=== PATIENT | female | born 1935 | race Caucasian/White ===

== ENCOUNTER → 2017-09-07 | Day surgery (SDC) | payer MEDICARE, OTHER ==
[2017-09-06 11:06] VITALS: BMI 32.1
[~2017-09-07] MED LIST: FLU VACC TS2017-18 (>65YR) 0.5 ML SYRINGE IM ONE
--- NOTE | 2017-09-07 15:18 | ULT ---
FINE NEEDLE ASPIRATION WITH IMAGING GUIDANCE: Date: 09/07/17 HISTORY: Thyroid nodule. COMPARISON: Outside facility ultrasound dated 08/18/17. TECHNIQUE/FINDINGS: Patient was brought to the ultrasound suite. All questions were answered. The thyroid nodule in the left lobe was revisualized and confirmed by comparting to the prior examination. Timeout was perform ed. Informed consent was already obtained. Using ultrasound guidance, a total of four 25 gauge cores were obtained through the left thyroid nodule. The patient tolerated the procedure well. No complic ations. IMPRESSION: Technically successful left thyroid mass fine needle aspiration. POS: [facility]
== END ==
LOC: ULT 10:23
PROVIDERS: ATTEND Otolaryngology Plastic Surgery within the Head & Neck
PROC: 0G9G3ZX Drainage of Left Thyroid Gland Lobe, Percutaneous Approach, Diagnostic (ICD-10-PCS; principal; 2017-09-07)
DX: E04.1 Nontoxic single thyroid nodule (principal); Z91.040 Latex allergy status; Z88.5 Allergy status to narcotic agent
CPT/HCPCS: 10022; 76942; 88173; 88305

== ENCOUNTER 2017-10-20 15:11 | Inpatient (IN) | payer MEDICARE, OTHER ==
[2017-10-20 15:35] LABS: #Basophils 0.1 thou/uL (0.0-0.2); #Eosinphils 0.2 thou/uL (0.0-0.7); #Lymphocytes 2.5 thou/uL (1.20-3.40); #Monocytes 0.9 thou/uL (0.11-0.59); #Neutrophils 5.7 thou/uL (1.40-6.50); %Basophils 0.8 % (0.0-1.0); %Eosinophils 2.1 % (0.0-10.0); %Lymphocytes 26.8 % (21.0-51.0); %Monocytes 9.7 % (0.0-10.0); Red Blood Cell (RBC) Count 4.47 mill/uL (4.20-5.40); White Blood Cell (WBC) Count 9.4 thou/uL (4.8-10.8)
[2017-10-20] MEDS ORDERED: Diltiazem HCl 125 MG, Admixture Fee 1 EACH in Sodium Chloride 0.9% 100 ML IVPB SCH (15:45)
[2017-10-20] MEDS ORDERED: Enoxaparin Sodium 80 MG/0.8 ML SYRINGE ONE (15:57)
[2017-10-20 16:01] LABS: Troponin I 0.022 ng/mL (< 0.028)
[2017-10-20 16:05] LABS: ALT (SGPT) 20 U/L (8-55); AST (SGOT) 22 U/L (5-34); Alkaline Phosphatase 93 U/L (40-150); Anion Gap 15 mmol/L (10-20); BUN (Urea Nitrogen) 30 mg/dL (9.8-20.1); Bilirubin, Total 0.3 mg/dL (0.2-1.2); CK (CPK) 115 U/L (29-168); Calc. Creatinine Clearance 0 mL/min (70-130); Calcium 10.2 mg/dL (7.8-10.44); Carbon Dioxide 19 mmol/L (23-31); Chloride 107 mmol/L (98-107); Estimated GFR-MDRD 39; Globulin 3.8 g/dL (2.4-3.5); Protein, Total 8.1 g/dL (6.0-8.3)
[2017-10-20] MEDS ORDERED: Sodium Chloride 0.9% 1,000 ML IV SCH (17:36)
[2017-10-20 17:58] VITALS: BMI 30.1
--- NOTE | 2017-10-20 18:20 | HP ---
DATE OF ADMISSION: 10/20/2017 CHIEF COMPLAINT: None. HISTORY OF PRESENT ILLNESS: The patient is an 82-year-old female who had preparation done prior to her surgery. She is supposed to have left lobectomy by Dr. Guerra at the [facility] and she went to [facility] for preparation. EKG was done and she was found to be in atrial fibrillation with rapid ventricular response at 120s. She was sent to the emergency room and while in the emergency room, she was given 20 mg of IV push of Cardizem, which converted her to normal sinu s rhythm, but decision was made to admit her to control her atrial fibrillation or decrease the risk by using medications to prevent recurrence of atrial fibrillation. She never had this before in the past. She does not even feel how her heart is beating that she is in such arrhythmic cardiac functio n. She does not complain about shortness of breath. She does not have any chest pain. She did not even know that she is in atrial fibrillation. PAST MEDICAL HISTORY: Positive for thyroid problem, unclear diagnosis. Patient does not know. PAST SURGICAL HISTORY: Status post ablation by pain management, it is not clear what kind of ablatio n she had in the back for lower back pain. This was done on 10/12/2017. MEDICATIONS: Just vitamins D, K. FAMILY HISTORY: Mother was 92. She passed of old age and father had cancer of the salivary gland. He was in his 70s when he passed. SOCIAL HISTORY: She never smoked. She does not drink alcohol. She does not use any illicit drugs. ALLERGIES: None. REVIEW OF SYSTEMS: All 14 systems were reviewed and they were negative except for cold feet and some hurting of the stomach on and off. Otherwise, all review of systems are negative. PHYSICAL EXAMINATION: VITAL SIGNS: Blood pressure is 170/70, pulse is 70, respiratory rate is 18. She is afebrile. HEENT: Atraumatic, normocephalic. Eyes are PERRLA. Conjunctivae pinkish. Sclerae is nonicteric. Oral mucosa is moist. NECK: Supple, no lymphadenopathy, the left side of the neck is slightly more prominent, which is sug gestive that there is some thyroid enlargement, no carotid bruits. LUNGS: Clear. HEART: S1, S2, irregularly irregular. No S3, no S4. ABDOMEN: Somewhat distant. Abdomen is soft, nontender, bowel sounds are present, no organomegaly. Nondistended. EXTREMITIES: She has good pulses on both tibialis posterior and dorsalis pedis arteries, similar aditya aterally. NEUROLOGIC: She is alert and oriented x4. There is no sensorimotor deficits present. Cranial nerve s are intact. LABORATORY DATA: Showed white count of 9.4, hemoglobin 15.2, hematocrit 46.0, MCV 103. The rest of CBC within normal limits. Chemistry showed sodium of 136, potassium 4.6, chloride 106, CO2 19, BUN 3 0, creatinine 1.3, globulin 3.8. The rest of chemistry within normal limits. CK-MB 2.8, troponin I 0.022. EKG showed atrial fibrillation with rapid ventricular response, 113 beats per minute, left ax is deviation, some nonspecific ST-T wave changes. This was personally reviewed by me. IMPRESSION: 1. New onset of atrial fibrillation on a patient who does not have much medical history. 2. Renal insufficiency is not clear whether this is chronic or acute. 3. Thyroid pathology requiring lobectomy, but unclear diagnosis per patient. PLAN: Full admission to telemetry. Condition is fair. Activity: Bed rest and bathroom privileges. IV normal saline at 100 mL per hour, Cardizem drip. She was given 20 mg Cardizem IV push. She was given Lovenox 1 mg/kg, which is 70 mg subcutaneously now and she will have every 12 hours starting t omorrow 9 a.m., would have Cardiology consultation with Dr. Luna. She is going to continue Cardi zem drip at 2.5 mg per hour and she will be on SCD prophylaxis of DVT.
[2017-10-20 19:30] LABS: Free T3 2.3 pg/mL (1.71-3.71)
[2017-10-21] MEDS ORDERED: cloNIDine 0.1 MG TAB PO SCH (02:00)
[2017-10-21] MEDS ORDERED: Enoxaparin Sodium 80 MG/0.8 ML SYRINGE SC SCH (09:00)
--- NOTE | 2017-10-21 12:46 | PRG ---
DATE OF SERVICE: 10/21/2017 SUBJECTIVE: The patient is seen and examined at the bedside. She is doing significantly better. Rm goldberg was not able to sleep last night much, but otherwise she is doing quite well according to her. OBJECTIVE: VITAL SIGNS: Blood pressure is 148/94, temperature is 97.9, pulse oximetry is 70, respiratory rate i s 18, and O2 saturation is 95% on room air. HEENT: Her head is atraumatic, normocephalic. Eyes PERRLA. Oral mucosa is moist. NECK: Supple. No JVD. LUNGS: Clear. HEART: S1, S2 normal, no S3, no S4. No any murmur. ABDOMEN: Soft, nontender, nondistended. EXTREMITIES: No clubbing, cyanosis or edema. NEUROLOGIC: Intact. She is alert and oriented x4. There is no any motor or sensory deficits. LABORATORY DATA: Showed none this morning. Last night, free T3 was checked, it was 2.3 and free T4 was 1.12 and third generation TSH was 2.1051. IMPRESSION: 1. New onset of atrial fibrillation with rapid ventricular response. The patient converted to sinus rhythm in the emergency room, before she was started on a Cardizem drip 2.5 mg per hour according to the monitoring. She never went back to atrial fibrillation overnight, but she has multiple prematur e ventricular contractions. 2. Renal insufficiency, not clear whether this is chronic or acute. We will obtain the BMP today. 3. Thyroid pathology requiring lobectomy by ENT doctor at [facility]. 4. Hypertension. The patient will be on calcium channel betina. It should help elevation of the b lood pressure. Dr. Luna is supposed to see her for cardiology evaluation. Echocardiogram is sti ll pending. PLAN: Plan is to start her on Cardizem CD 120 mg once a day and stop Cardizem drip. Check magnesium level and because of her multiple PVCs, we will most likely give her some magnesium based on the lev el of magnesium. Also, we will start her on aspirin 81 mg and stop her full dose of heparin.
--- NOTE | 2017-10-21 23:11 | CON ---
DATE OF CONSULTATION: 10/21/2017 HISTORY: Alysia Dubois is an 82-year-old white female who was to have a thyroid lobectomy by Dr. Guerra at the [facility]. Apparently, one of her thyroid lobes was enlarged. She underwent needle biopsy which was inconclusive and ultimately, she decided to have a lobectomy. She also on 10/12/2017 underwent radiofrequency ablation of lumbar nerves for chronic back pain. At no time has anyone told her that she had a rapid heartbeat. She went to have her preop EKG performed and was found to be in atrial fibrillation with fast ventricular response and she came to [place] for further evaluation. She denies any palpitations, shortness of breath, lightheadedness, or dizziness. She was given Cardizem 20 mg IV push in the emergency room followed by a drip and she converted to sinus rhythm apparently with the IV bolus. PAST MEDICAL HISTORY: Enlarged thyroid lobe. She states at times her blood pressure is high. She denies any history of hypercholesterolemia but has had high levels in the past. PAST SURGICAL HISTORY: Status post radiofrequency ablation of nerves by pain management doctor on 10/12/2017. MEDICATIONS: Magnesium 50 daily, azelastine nasal spray 1 spray each side daily , Bentyl 10 mg q.i.d. p.r.n., cranberry extract, Flovent 50 p.r.n., vitamin K 100 mcg daily, vitamin D3. ALLERGIES: LATEX AND DEMEROL. SOCIAL HISTORY: She does not smoke or drink. FAMILY HISTORY: Negative for coronary artery disease. REVIEW OF SYSTEMS: A 12-point review of systems is otherwise unremarkable. PHYSICAL EXAMINATION: VITAL SIGNS: 145/65, pulse of 71. Most of her blood pressures had been elevated in the hospital in the 160-190 range. HEENT: PERRL. NECK: Supple. CHEST: Clear. CARDIAC: S1 and S2 are normal, without any S3, S4, or murmurs. Carotid upstrokes are normal without bruits. ABDOMEN: Normal bowel sounds, without tenderness or organomegaly. EXTREMITIES: Revealed no clubbing, cyanosis, or edema. NEUROLOGIC: Grossly intact. LABORATORY AND X-RAY FINDINGS: EKG revealed atrial fibrillation with fast ventricular response of 113 per minute, left axis deviation. There are 2 PVCs. Hemoglobin 15.2, hematocrit 46.0, white count 9400. Sodium 136, potassium 4.6 , chloride 107, carbon dioxide 19, BUN 30, creatinine 1.30. TSH, free T4, and free T3 are all normal. Cardiac enzymes are unremarkable. It was also of note that in 01/2017, she had a cholesterol of 236, triglycerides 104, HDL 65, LDL 150. IMPRESSION: 1. New onset atrial fibrillation. She apparently has been seen by multiple doctors over the last 2-3 months and apparently, no one noticed rapid heartbeat and she had undergone a procedure on 10/12/2017 and this was not noted. The exact onset is unclear with the patient being asymptomatic. 2. Enlarged thyroid lobe. 3. Probable hypertension. 4. Hypercholesterolemia, untreated. PLAN: I do feel that she should be anticoagulated for 1 month. I would increase the Cardizem from 120 to 180 daily with recurrent blood pressures. Also, a consideration should be given to outpatient stress testing prior to her surgery. I feel she may be discharged tomorrow after starting Eliquis 5 mg b.i.d. Arrangements will be made for an outpatient stress test. MAYRA
[2017-10-22] MEDS: cloNIDine 0.1 MG TAB PO PRN ×2 (05:19→20:15)
[2017-10-22] MEDS: Apixaban 5 MG TAB PO SCH ×2 (09:18→20:13)
--- NOTE | 2017-10-22 15:08 | PRG ---
DATE OF SERVICE: 10/22/2017 SUBJECTIVE: The patient is seen and examined at bedside. She is doing quite well. She does not hav e much complaints to offer. She would like to go home. OBJECTIVE: VITAL SIGNS: Blood pressure is 136/66, pulse 65, temperature 97.5, respiratory rate 18, and pulse ox imetry is 95% on room air. HEENT: Head is atraumatic and normocephalic. Eyes are PERRLA. Conjunctivae pinkish. Oral mucosa i s moist. NECK: Supple, no lymphadenopathy. Thyroid is not palpable. LUNGS: Clear. HEART: S1 and S2 normal, regular, no S3, no S4, no any murmur. ABDOMEN: Soft, nontender, bowel sounds are present, no organomegaly. EXTREMITIES: No clubbing, cyanosis or edema. NEUROLOGIC: Examination is intact. LABORATORY DATA: Showed triglycerides 86, total cholesterol 191, LDL 120, HDL 54, IMPRESSION: 1. New onset of atrial fibrillation with rapid ventricular response converted to normal sinus rhythm . Patient is on Cardizem in which dose was increased by manager cancer, Dr. Luna, who saw the ken ent, and she is on 180 mg slow release form once a day. 2. Elevated blood pressure at night and caregiver services home hours. We will start her on 5 mg of lisinopri l at 1800. Continue with Cardizem. 3. Renal insufficiency. 4. Cytopathology requiring lobectomy by ENT doctor at [facility], this will be s cheduled soon. 5. Hypertension, as mentioned above. Echocardiogram is still pending. The patient was placed on Apixaban 5 mg twice a day for blood scree tiago purposes to prevent CVA. We will continue that regimen and we will continue her clonidine p.r.n . use for elevated blood pressure. The patient should have stress test done prior to her ENT surgery on her thyroid after she is discharged from the hospital.
[2017-10-22] MEDS ORDERED: Lisinopril 5 MG TAB PO SCH (18:00)
[2017-10-23 05:39] LABS: Anion Gap 10 mmol/L (10-20); BUN (Urea Nitrogen) 20 mg/dL (9.8-20.1); Calc. Creatinine Clearance 64 mL/min (70-130); Calcium 9.4 mg/dL (7.8-10.44); Carbon Dioxide 24 mmol/L (23-31); Chloride 107 mmol/L (98-107); Estimated GFR-MDRD 65
[2017-10-23 07:59] VITALS: TEMP 97.9
[2017-10-23] MEDS: Apixaban 5 MG TAB PO SCH (08:00)
[2017-10-23 08:16] LABS: Hematocrit 36.1 % (36.0-47.0)
--- NOTE | 2017-10-23 12:22 | PQF ---
TOAN JOE [facility]TAF [facility] [id number] [facility] [id number] CLINICAL DOCUMENTATION IMPROVEMENT CLARIFICATION FORM: ICD-10 Updated PLEASE DO AN ADDENDUM TO THE PROGRESS NOTE WITH ANY DOCUMENTATION UPDATES OR ADDITIONS AND CARRY THROUGH TO DC SUMMARY. THANK YOU. DATE: 10-23-17 ATTN: DR. ARELLANO Please exercise your independent, professional judgment in responding to the clarification form. Clinical indicators are provided on the bottom of this form for your review Please check appropriate box(s): [ ] Acute Renal Failure (ARF) / Acute Kidney Injury (JENNA) [ ] Acute on Chronic Renal Failure please specify Stage of CKD (see below) [ ] CKD without ARF/JENNA please specify Stage of CKD [ ] Other diagnosis [ ] Unable to determine National Kidney Foundation Guidelines for CKD Staging Stage I Kidney damage with normal or increased GFRGFR > 90 Stage II Kidney damage with mildly decreased GFRGFR 60-89 Stage III Kidney damage with moderately decreased GFRGFR 30-59 Stage IV Kidney damage with severely decreased GFRGFR 16-29 Stage V Kidney failure GFR<15 ESRD End Stage Renal Disease On dialysis For continuity of documentation, please document condition throughout progress notes and discharge summary. Thank You. CLINICAL INDICATORS - SIGNS / SYMPTOMS / LABS LABS: BUN CREAT GFR 12-15 30 1.30 39 12-18 20 0.84 65 H&P: RENAL INSUFFICIENCY - NOT CLEAR IF ACUTE OR CHRONIC RISK FACTORS H&P: NEW ONSET A-FIB W/ RVR THYROID PROBLEM - UNCLEAR DX - REQUIRING LOBECTOMY TREATMENTS: H&P: CARDIZEM DRIP CARDIO CONSULT CPOE: BUN/CREAT THANK YOU, DONA (This form is maintained as a part of the permanent medical record) 2015 [employer]. All Rights Reserved Dona Rush RN, BS [email or web address] [employer] [facility]
[2017-10-23 12:35] VITALS: BP 161/73
[2017-10-23] MEDS ORDERED: Lisinopril 5 MG TAB PO SCH (18:00)
--- NOTE | 2017-11-04 13:33 | EKG ---
Test Reason : ROUTINE Blood Pressure : / mmHG Vent. Rate : 072 BPM Atrial Rate : 072 BPM P-R Int : 208 ms QRS Dur : 088 ms QT Int : 408 ms P-R-T Axes : 033 -29 065 degrees QTc Int : 446 ms Normal sinus rhythm Normal ECG When compared with ECG of 25-MAY-2000 08:15, No significant change was found Confirmed by MELODY GREEN MD ([id number]) on 11/04/2017 1:33:50 PM Referred By: NATHALY Confirmed By:MELODY GREEN MD
== END 2017-10-23 12:41 | disposition home or self-care (01) | DRG 309 ==
LOC: ERS 15:11 → 2NO 16:00
PROVIDERS: ADMIT Internal Medicine; ATTEND Internal Medicine
DX: I48.91 Unspecified atrial fibrillation (principal); N17.9 Acute kidney failure, unspecified; I12.9 Hypertensive chronic kidney disease with stage 1 through stage 4 chronic kidney disease, or unspecified chronic kidney disease; N18.2 Chronic kidney disease, stage 2 (mild); E07.9 Disorder of thyroid, unspecified; E78.00 Pure hypercholesterolemia, unspecified; I49.3 Ventricular premature depolarization; N28.9 Disorder of kidney and ureter, unspecified
CPT/HCPCS: 36415; 80048; 80053; 80061; 82550; 82553; 83735; 84439; 84443; 84481; 84484; 85014; 85018; 85025; 85049; 93005; 93010; 93306; 96365; 96372; 96376; A4216; J1650; J3475; J7050

== ENCOUNTER 2018-01-17 13:00 | Day surgery (SDC) | payer MEDICARE ==
[2018-01-16 11:42] VITALS: BMI 29.1
[2018-01-17 13:46] LABS: Hemoglobin 13.8 g/dL (12.0-16.0)
[2018-01-17] MEDS ORDERED: Lidocaine 1% PF 5 ML VIAL ONE (14:02)
[2018-01-17] MEDS ORDERED: Ondansetron HCl/PF 4 MG/2 ML Vial ONE ×3 (14:02→15:21)
[2018-01-17] MEDS ORDERED: Succinylcholine Chloride 20 MG/ML 10 ml SYRINGE FS ONE (14:02)
[2018-01-17] MEDS ORDERED: Esmolol 100 MG/10 ML VIAL ONE (14:02)
[2018-01-17] MEDS ORDERED: Propofol 200 MG/20 ML VIAL ONE (14:02)
[2018-01-17 14:09] LABS: Anion Gap 15 mmol/L (10-20); BUN (Urea Nitrogen) 20 mg/dL (9.8-20.1); Calc. Creatinine Clearance 46 mL/min (70-130); Calcium 10.3 mg/dL (7.8-10.44); Carbon Dioxide 19 mmol/L (23-31); Chloride 110 mmol/L (98-107); Estimated GFR-MDRD 45; Glucose 97 mg/dL (83-110); Potassium 4.2 mmol/L (3.5-5.1); Sodium 140 mmol/L (136-145)
[2018-01-17] MEDS ORDERED: Famotidine/PF 20 mg/2ml Vial ONE (15:21)
[2018-01-17] MEDS ORDERED: Fentanyl 250 MCG/5 ML VIAL ONE (15:21)
[2018-01-17] MEDS ORDERED: Lidocaine 1% w/Epinephrine 1:200K 30 ML VIAL ONE (15:22)
[2018-01-17] MEDS ORDERED: Hydrocodone-Acetamin 15 ML UDCUP ONE (17:39)
--- NOTE | 2018-01-17 20:39 | OP ---
DATE OF PROCEDURE: 01/17/2018 PREOPERATIVE DIAGNOSIS: Left thyroid mass. POSTOPERATIVE DIAGNOSIS: Left thyroid mass. PROCEDURES: Left hemithyroidectomy. SURGEON: Félix Cameron M.D. ESTIMATED BLOOD LOSS: 10 mL COMPLICATIONS: None. ANESTHESIA: GETA with laryngeal nerve monitoring. PROCEDURE IN DETAIL: The patient was taken to the operating room and placed supine on the operating room table. General endotracheal anesthesia was obtained by the Anesthesia staff. Tube was secured in the midline of the upper lip. The laryngeal electrodes were confirmed to be between the true voca l cords and the tube was secured in the midline of the upper lip. Shoulder roll was placed. The [facility] ient was prepped and draped in standard surgical fashion. Following this, a lower lateral neck incis ion was made on the left side, approximately 4-5 cm in length. Incision was made with a 15-blade thr ough skin subcuticular tissue and the platysmal layer. Following this, the strap muscles were identi fied and were in the midline and were retracted laterally. The gland was then displaced me dially. The superior parathyroid was identified and was retracted laterally. The superior pole vess els were then suture ligated with a 2-0 silk. The inferior pole vessels were then suture ligated wit h a 2-0 silk and the gland was freed from its attachments. The recurrent laryngeal nerve was identif ied and was protected and the gland was dissected medially. Following this, the entire left thyroid lobe was then suture ligated and removed from the body and sent for analysis. The wound was irrigate d, a small drain was placed. A small piece of fibrillar was placed over the area of the recurrent la ryngeal nerve and then the wound was closed using Monocryl stitches for the strap muscles and platysm al layer as well as the subcuticular layer. Dermabond was placed to reapproximate the skin. The [facility] ient tolerated the procedure well.
== END 2018-01-17 18:18 | disposition home or self-care (01) ==
LOC: SDC 13:00
PROVIDERS: ATTEND Otolaryngology Plastic Surgery within the Head & Neck
PROC: 0GTG0ZZ Resection of Left Thyroid Gland Lobe, Open Approach (ICD-10-PCS; principal; 2018-01-17)
DX: D34 Benign neoplasm of thyroid gland (principal); J30.9 Allergic rhinitis, unspecified; E78.5 Hyperlipidemia, unspecified; I10 Essential (primary) hypertension; M19.90 Unspecified osteoarthritis, unspecified site; Z91.040 Latex allergy status; Z79.01 Long term (current) use of anticoagulants; Z79.51 Long term (current) use of inhaled steroids; Z79.899 Other long term (current) drug therapy; Z88.5 Allergy status to narcotic agent; Z87.440 Personal history of urinary (tract) infections
CPT/HCPCS: 80048; 85014; 85018; 88307; 93005; 93010; J0131; J2001; J2405; J2704; J3010; S0028

== ENCOUNTER 2018-08-07 13:24 | Outpatient (CLI) | payer MEDICARE ==
--- NOTE | 2018-08-07 16:08 | BD ---
Exam: DEXA Bone Density 08/07/18 HISTORY: Postmenopausal. Lumbar Spine: BMD (g/cm2) L1 1.089 T-Score: +0.9 L2 1.154 T-Score: +1.1 L3 1.115 T-Score: +0.3 L4 1.055 T-Score: -0.1 L1-L4 1.097 T-Score: +0.5 Left Femoral Neck: 0.713 T-Score: -1.2 Total Femur: 0.877 T-Score: -0.5 Impression: 1. Osteopenia of the left femoral neck. Normal bone mineral density of the lumbar spine. 2. Ten year fracture risk for major osteoporotic fracture is 27% and hip fracture 16%. These fra cture probabilities are calculated for an untreated patient. POS: [facility]
== END 2018-08-07 13:25 | disposition home or self-care (01) ==
LOC: BICMAMMO 13:24
PROVIDERS: ATTEND Internal Medicine
DX: Z12.31 Encounter for screening mammogram for malignant neoplasm of breast (principal); Z80.3 Family history of malignant neoplasm of breast; M85.852 Other specified disorders of bone density and structure, left thigh; Z78.0 Asymptomatic menopausal state
CPT/HCPCS: 77063; 77067; 77080